=== PATIENT | female | born 1980 | race Two or more races ===

== ENCOUNTER 2016-10-31 14:33 | Emergency (ER) | payer MEDICAID ==
[2016-10-31 15:02] LABS: URINE BILIRUBIN NEGATIVE (NEGATIVE); URINE BLOOD NEGATIVE (NEGATIVE); URINE GLUCOSE (UA) NEGATIVE (NEGATIVE); URINE LEUKOCYTE ESTERASE NEGATIVE (NEGATIVE); URINE NITRITE NEGATIVE (NEGATIVE); URINE PROTEIN NEGATIVE (NEGATIVE); URINE UROBILINOGEN NORMAL (0-1 mg/dl)
[2016-10-31 15:09] LABS: URINE APPEARANCE CLEAR; URINE COLOR YELLOW
[2016-10-31 15:10] LABS: HCG,QUALITATIVE URINE NEGATIVE
[2016-10-31] MEDS ORDERED: IBUPROFEN 600 MG TABLET ONE (15:51)
[2016-10-31] MEDS ORDERED: ACETAMINOPHEN 325 MG TABLET ONE (15:51)
== END 2016-10-31 15:55 | disposition home or self-care (01) ==
LOC: ED 14:33
DX: R10.9 Unspecified abdominal pain (principal)
CPT/HCPCS: 81025; 81003; 99283 ×2; A9270 ×2